=== PATIENT | male | born 1970 | race Caucasian/White ===

== ENCOUNTER 2017-10-06 19:29 | Emergency (ER) | payer SELFPAY ==
[~2017-10-06] VITALS: Ht 185.4 cm; Wt 87.5 kg
--- NOTE | 2017-10-06 20:21 | ED Integumentary General ---
General Stated Complaint: SPIDER BITE L ARM Source: patient Exam Limitations: no limitations History of Present Illness Date Seen by Provider: Oct 06, 2017 Time Seen by Provider: 20:18 Initial Comments to ER with concerns of a spider bite to the volar aspect of the left arm. He awakened this morning with a painful red bump that has progressively gotten more red and darkened center today. He does have chills but no nausea vomiting or muscle aches. Timing/Duration: just prior to arrival Severity: moderate Associated Symptoms: No petechiae, No rash Allergies and Home Medications Allergies Coded Allergies: No Known Drug Allergies (Unverified , 10/06/17) Home Medications Doxycycline Hyclate 100 Mg Tablet, 100 MG PO BID Prescribed by: BRANNON ALBARADO on 10/06/172025 Hydrocodone/Acetaminophen 1 Each Tablet, 1 EACH PO Q4H PRN for PAIN-SEVERE Prescribed by: BRANNON ALBARADO on 10/06/172025 Patient Home Medication List Home Medication List Reviewed: Yes Constitutional: see HPI EENTM: see HPI Respiratory: no symptoms reported Cardiovascular: no symptoms reported Genitourinary: no symptoms reported Musculoskeletal: no symptoms reported Skin: see HPI Psychiatric/Neurological: No Symptoms Reported Endocrine: No Symptoms Reported Past Lwkjxes-Odgioy-Mgeevn Hx Patient Social History Recent Foreign Travel: No Contact w/Someone Who Travel: No Physical Exam Vital Signs Vital Signs - First Documented 10/06/17 20:35 Temp 98.2 Pulse 89 Resp 18 B/P (MAP) 151/106 (121) Pulse Ox 99 Capillary Refill : General Appearance: WD/WN, no apparent distress HEENT: PERRL/EOMI, normal ENT inspection Neck: non-tender, full range of motion Respiratory: normal breath sounds, no respiratory distress, no accessory muscle use Gastrointestinal: normal bowel sounds, non tender Neurologic/Psychiatric: alert, normal mood/affect, oriented x 3 Skin: normal color, warm/dry Skin Problem Location: other (there is about a 9 cm well demarcated erythematous patch slightly elevated to the volar aspect of the left forearm without lymphangitis. There is a 1 cm area of ecchymosis within the center of this.) Progress/Results/Core Measures Results/Orders Lab Results Laboratory Tests Test 10/06/17 20:25 10/06/17 20:55 Range/Units White Blood Count 20.2 H 4.3-11.0 10^3/uL Red Blood Count 5.14 4.35-5.85 10^6/uL Hemoglobin 15.5 13.3-17.7 G/DL Hematocrit 45 40-54 % Mean Corpuscular Volume 88 80-99 FL Mean Corpuscular Hemoglobin 30 25-34 PG Mean Corpuscular Hemoglobin Concent 34 32-36 G/DL Red Cell Distribution Width 13.5 10.0-14.5 % Platelet Count 373 130-400 10^3/uL Mean Platelet Volume 9.8 7.4-10.4 FL Neutrophils (%) (Auto) 83 H 42-75 % Lymphocytes (%) (Auto) 10 L 12-44 % Monocytes (%) (Auto) 6 0-12 % Eosinophils (%) (Auto) 1 0-10 % Basophils (%) (Auto) 0 0-10 % Neutrophils # (Auto) 16.7 H 1.8-7.8 X 10^3 Lymphocytes # (Auto) 2.0 1.0-4.0 X 10^3 Monocytes # (Auto) 1.2 H 0.0-1.0 X 10^3 Eosinophils # (Auto) 0.3 0.0-0.3 10^3/uL Basophils # (Auto) 0.0 0.0-0.1 10^3/uL Neutrophils % (Manual) 83 % Lymphocytes % (Manual) 8 % Monocytes % (Manual) 5 % Eosinophils % (Manual) 4 % Basophils % (Manual) 0 % Band Neutrophils 0 % Blood Morphology Comment NORMAL Prothrombin Time 13.1 12.2-14.7 SEC INR Comment 1.0 0.8-1.4 Activated Partial Thromboplast Time 32 24-35 SEC Sodium Level 140 135-145 MMOL/L Potassium Level 3.9 3.6-5.0 MMOL/L Chloride Level 108 H 98-107 MMOL/L Carbon Dioxide Level 18 L 21-32 MMOL/L Anion Gap 14 5-14 MMOL/L Blood Urea Nitrogen 14 7-18 MG/DL Creatinine 0.97 0.60-1.30 MG/DL Estimat Glomerular Filtration Rate > 60 BUN/Creatinine Ratio 14 Glucose Level 86 70-105 MG/DL Calcium Level 10.0 8.5-10.1 MG/DL Total Bilirubin 0.6 0.1-1.0 MG/DL Aspartate Amino Transf (AST/SGOT) 24 5-34 U/L Alanine Aminotransferase (ALT/SGPT) 16 0-55 U/L Alkaline Phosphatase 78 40-136 U/L Total Protein 7.8 6.4-8.2 GM/DL Albumin 4.7 H 3.2-4.5 GM/DL Lactic Acid Level 1.09 0.50-2.00 MMOL/L My Orders Orders - BRANNON ALBARADO APRN Cbc With Automated Diff (10/06/17 20:14) Comprehensive Metabolic Panel (10/06/17 20:14) Protime With Inr (10/06/17 20:14) Partial Thromboplastin Time (10/06/17 20:14) Ibuprofen Tablet (Motrin Tablet) (10/06/17 20:30) Manual Differential (10/06/17 20:25) Lactic Acid Analyzer (10/06/17 20:43) Blood Culture (10/06/17 20:43) Iv Heplock-Insert (Order) (10/06/17 20:43) Ceftriaxone Injection (Rocephin Injectio (10/06/17 20:45) Medications Given in ED Current Medications Medications Dose Ordered Sig/Logan Route Start Time Stop Time Status Last Admin Dose Admin Ceftriaxone Sodium 1000 mg/ Sodium Chloride 50 ml @ 100 mls/hr ONCE ONCE IV 10/06/17 20:45 10/06/17 21:14 DC 10/06/17 21:36 100 MLS/HR Ibuprofen 800 mg ONCE ONCE PO 10/06/17 20:30 10/06/17 20:31 DC 10/06/17 20:44 800 MG Vital Signs/I&O 10/06/17 20:35 Temp 98.2 Pulse 89 Resp 18 B/P (MAP) 151/106 (121) Pulse Ox 99 Departure Communication (Admissions) 2033- requests antibiotics on $4 list as they are without insurance. ill use bactrim instead of doxycycline 2199- I discussed the leukocytosis with the patient and his . This is very alarming to the that he is without fevers, he is not tachycardic and his blood pressure is normal. I suspect this is systemic response to envenomation. He would prefer to go home and is feeling better at this time. No chills. No rash. He did receive Rocephin 1 g intravenously. Blood cultures are been drawn. He would prefer to avoid admission if at all possible. I'll call him tomorrow to recheck and Ill see him back here in the emergency room on Tuesdayfor recheck and repeat labs. He is agreeable with this plan, so hiswife. Impression Primary Impression: Soft tissue lesion Additional Impression: suspected brown recluse envenomation Disposition: HOME, SELF-CARE Condition: Stable Departure-Patient Inst. Decision time for Depature: 20:21 Referrals: NO,LOCAL PHYSICIAN (PCP/Family) Primary Care Physician Patient Instructions: Insect Bites and Stings (DC) Add. Discharge Instructions: 1. cool compresses to this area several times daily 2. Antibiotics as directed 3.medication as directed 4. Follow-up with your doctor next week for recheck. If you do not have one a list is been provided for you. Scripts Hydrocodone/Acetaminophen ([place] 5-325 Tablet) 1 Each Tablet 1 EACH PO Q4H PRN for PAIN-SEVERE, #10 TAB Prov: BRANNON ALBARADO APRN 10/06/17 Doxycycline Hyclate (Doxycycline Hyclate) 100 Mg Tablet 100 MG PO BID, #14 TAB Prov: BRANNON ALBARADO APRN 10/06/17 Work/School Note: Work Release Form Date Seen in the Emergency Department: Oct 06, 2017 Return to Work: Oct 10, 2017 BRANNON ALBARADO APRN Oct 06, 2017 20:21
[2017-10-06] MEDS ORDERED: HYDR-757 PO (20:26)
[2017-10-06] MEDS ORDERED: DOXY100T2 PO (20:26)
[2017-10-06] MEDS ORDERED: IBUPROFEN 800 MG (MOTRIN) TAB PO ONE (20:30)
[2017-10-06 20:31] LABS: BASOPHILS % (AUTO) 0 % (0-10); EOSINOPHILS # (AUTO) 0.3 10^3/uL (0.0-0.3); EOSINOPHILS % (AUTO) 1 % (0-10); HEMATOCRIT 45 % (40-54); HEMOGLOBIN 15.5 G/DL (13.3-17.7); LYMPHOCYTES % (AUTO) 10 % (12-44); MEAN CORPUSCULAR HEMOGLOBIN 30 PG (25-34); MEAN CORPUSCULAR HGB CONC 34 G/DL (32-36); MEAN CORPUSCULAR VOLUME 88 FL (80-99); MEAN PLATELET VOLUME 9.8 FL (7.4-10.4); MONOCYTES # (AUTO) 1.2 X 10^3 (0.0-1.0); MONOCYTES % (AUTO) 6 % (0-12); NEUTROPHILS # (AUTO) 16.7 X 10^3 (1.8-7.8); NEUTROPHILS % (AUTO) 83 % (42-75); PLATELET COUNT 373 10^3/uL (130-400); RED BLOOD COUNT 5.14 10^6/uL (4.35-5.85); RED CELL DISTRIBUTION WIDTH 13.5 % (10.0-14.5); WHITE BLOOD COUNT 20.2 10^3/uL (4.3-11.0)
[2017-10-06 20:41] LABS: PROTHROMBIN TIME PATIENT 13.1 SEC (12.2-14.7)
[2017-10-06] MEDS ORDERED: cefTRIAXone INJECTION 1,000 MG in NS (IVPB) 50 ML IV ONE (20:45)
[2017-10-06 20:46] LABS: BAND NEUTROPHILS 0 %; BASOPHILS % (MANUAL) 0 %; EOSINOPHILS % (MANUAL) 4 %; LYMPHOCYTES % (MANUAL) 8 %; MONOCYTES % (MANUAL) 5 %; NEUTROPHILS % (MANUAL) 83 %; RBC MORPH NORMAL
[2017-10-06 20:47] LABS: ALANINE AMINOTRANSFERASE 16 U/L (0-55); ALBUMIN 4.7 GM/DL (3.2-4.5); ALKALINE PHOSPHATASE 78 U/L (40-136); BILIRUBIN,TOTAL 0.6 MG/DL (0.1-1.0); BUN/CREATININE RATIO 14; CARBON DIOXIDE 18 MMOL/L (21-32); CHLORIDE 108 MMOL/L (98-107); CREATININE SERUM 0.97 MG/DL (0.60-1.30); GFR ESTIMATED > 60; GLUCOSE 86 MG/DL (70-105); POTASSIUM 3.9 MMOL/L (3.6-5.0); SODIUM 140 MMOL/L (135-145); TOTAL PROTEIN 7.8 GM/DL (6.4-8.2)
[2017-10-06 22:13] VITALS: BP 155/94
== END 2017-10-06 22:13 | disposition home or self-care (01) ==
LOC: ER 19:32
DX: M79.89 Other specified soft tissue disorders (principal)
CPT/HCPCS: 36415; 80053; 83605; 85007; 85027; 85610; 85730; 87040; 96365; 99284

== ENCOUNTER 2017-10-08 12:51 | Emergency (ER) | payer SELFPAY ==
[~2017-10-08] VITALS: Ht 182.9 cm; Wt 77.1 kg
[~2017-10-08 12:51] MED LIST: DOXY100T2 PO; HYDR-757 PO
[2017-10-08] MEDS ORDERED: HYDR-757 PO (13:21)
--- NOTE | 2017-10-08 13:21 | ED Upper Extremity ---
General Chief Complaint: Bite-Animal/Human/Insect Stated Complaint: WOUND CHECK ON ARM Nursing Triage Note: ARRIVED VIA AMB TO ROOM 10. STATES SPIDER BITE ON LEFT ARM IS NOT BETTER AND WAS TOLD TO COME BACK TODAY FOR A RECHECK. Nursing Sepsis Screen: No Definite Risk Source: patient Exam Limitations: no limitations History of Present Illness Date Seen by Provider: Oct 08, 2017 Time Seen by Provider: 13:18 Initial Comments To ER with reports of a spider bite to the volar aspect left forearm. He was seen here 2 days ago for the same 20,000 white count wish to go home. He was discharged, blood cultures were negative. Erythema has increased, swelling has increased albeit mildly. He denies fevers chills nausea or vomiting. Onset: just prior to arrival Severity: moderate Pain/Injury Location: left forearm Method of Injury: unknown Allergies and Home Medications Allergies Coded Allergies: No Known Drug Allergies (Unverified , 10/06/17) Home Medications Doxycycline Hyclate 100 Mg Tablet, 100 MG PO BID Prescribed by: BRANNON ALBARADO on 10/06/172025 Hydrocodone/Acetaminophen 1 Each Tablet, 1 EACH PO Q4H PRN for PAIN-SEVERE Prescribed by: BRANNON ALBARADO on 10/06/172025 Patient Home Medication List Home Medication List Reviewed: Yes Constitutional: see HPI EENTM: see HPI Respiratory: no symptoms reported Cardiovascular: no symptoms reported Genitourinary: no symptoms reported Musculoskeletal: no symptoms reported Skin: see HPI Psychiatric/Neurological: No Symptoms Reported Past Wvkprmg-Nbmgzc-Zpvman Hx Patient Social History Alcohol Use: Occasionally Uses Alcohol Beverage of Choice: Beer Recreational Drug Use: Yes Drug of Choice: POT Smoking Status: Current Everyday Smoker Type Used: Cigarettes Recent Foreign Travel: No Contact w/Someone Who Travel: No Recent Infectious Disease Expo: No Past Medical History Surgeries: No Respiratory: No Cardiac: No Neurological: No Genitourinary: No Gastrointestinal: No Musculoskeletal: No Endocrine: No HEENT: No Cancer: No Psychosocial: No Integumentary: No Blood Disorders: No Physical Exam Vital Signs Vital Signs - First Documented 10/08/17 13:03 Temp 99.1 Pulse 81 Resp 18 B/P (MAP) 114/86 (95) Pulse Ox 96 O2 Delivery Room Air Capillary Refill : Less Than 3 Seconds General Appearance: WD/WN, no apparent distress HEENT: PERRL/EOMI, normal ENT inspection Neck: non-tender, full range of motion Respiratory: normal breath sounds, no respiratory distress, no accessory muscle use Gastrointestinal: normal bowel sounds, non tender Elbow/Forearm: swelling (swelling to the volar aspect left forearm, blanching to a quarter sized area and necrosis to 0.5 cm area in the center of that.) Wrist: Yes normal inspection, Yes non-tender Hand: normal inspection, non-tender Skin: normal color, warm/dry Progress/Results/Core Measures Results/Orders My Orders Orders - BRANNON ALBARADO APRN Cbc With Automated Diff (10/08/17 13:04) Vital Signs/I&O 10/08/17 13:03 Temp 99.1 Pulse 81 Resp 18 B/P (MAP) 114/86 (95) Pulse Ox 96 O2 Delivery Room Air Blood Pressure Mean: 95 Departure Impression Primary Impression: Spider bite wound Disposition: 01 HOME, SELF-CARE Condition: Stable Departure-Patient Inst. Decision time for Depature: 13:20 Referrals: NO,LOCAL PHYSICIAN (PCP/Family) Primary Care Physician Patient Instructions: Insect Bites and Stings (DC) Add. Discharge Instructions: 1. Continue with cool compresses 2. Return to ER for any concerns 3. Continue antibiotics All discharge instructions reviewed with patient and/or family. Voiced understanding. Scripts Hydrocodone/Acetaminophen ([place] 5-325 Tablet) 1 Each Tablet 1 EACH PO Q6H PRN for PAIN-MODERATE TO SEVERE, #14 TAB Prov: BRANNON ALBARADO APRN 10/08/17 BRANNON ALBARADO APRN Oct 08, 2017 13:21
[2017-10-08 13:22] LABS: BASOPHILS % (AUTO) 0 % (0-10); EOSINOPHILS # (AUTO) 0.5 10^3/uL (0.0-0.3); EOSINOPHILS % (AUTO) 4 % (0-10); HEMATOCRIT 42 % (40-54); HEMOGLOBIN 14.7 G/DL (13.3-17.7); LYMPHOCYTES # (AUTO) 1.4 X 10^3 (1.0-4.0); LYMPHOCYTES % (AUTO) 11 % (12-44); MEAN CORPUSCULAR HEMOGLOBIN 31 PG (25-34); MEAN CORPUSCULAR HGB CONC 35 G/DL (32-36); MEAN CORPUSCULAR VOLUME 88 FL (80-99); MEAN PLATELET VOLUME 9.8 FL (7.4-10.4); MONOCYTES # (AUTO) 0.7 X 10^3 (0.0-1.0); MONOCYTES % (AUTO) 6 % (0-12); NEUTROPHILS # (AUTO) 10.2 X 10^3 (1.8-7.8); NEUTROPHILS % (AUTO) 80 % (42-75); PLATELET COUNT 351 10^3/uL (130-400); RED BLOOD COUNT 4.77 10^6/uL (4.35-5.85); RED CELL DISTRIBUTION WIDTH 13.4 % (10.0-14.5); WHITE BLOOD COUNT 12.8 10^3/uL (4.3-11.0)
[2017-10-08 13:29] VITALS: BP 129/88
== END 2017-10-08 13:29 | disposition home or self-care (01) ==
LOC: EDUNIT# 12:51 → ER 12:53
DX: S50.862A Insect bite (nonvenomous) of left forearm, initial encounter (principal); F12.90 Cannabis use, unspecified, uncomplicated; F17.210 Nicotine dependence, cigarettes, uncomplicated; W57.XXXA Bitten or stung by nonvenomous insect and other nonvenomous arthropods, initial encounter
CPT/HCPCS: 36415; 85025; 99283